=== PATIENT | male | born 1965 | race Caucasian/White ===

== ENCOUNTER 2017-11-07 20:13 | Emergency (ER) | payer BC ==
[2017-11-07] MEDS ORDERED: TETRACAINE HCL 0.5% 2ML OPTH ONE (20:38)
[2017-11-07] MEDS ORDERED: FLUORESCEIN SODIUM 0.6 MG/WRAP ONE (20:38)
--- NOTE | 2017-11-07 21:10 | EDPHYS ---
Physician Documentation [facility] Name: Petey Goldberg Age: 51 yrs Sex: Male : 1965 Arrival Date: 11/07/2017 Time: 20:14 Bed Treatment Private MD: Cuco Espinal B ED Physician Daryl Godinez HPI: 11/07 22:00 This 51 yrs old Male presents to ER via Ambulatory with complaints of Right pm1 Eye Pain and swelling. 22:00 Associated signs and symptoms: Pertinent negatives: visual changes. Patient wears soft pm1 contacts. Severity of symptoms: in the emergency department the symptoms have improved. Patient wears soft contact lenses. Patient with right eye lid swelling that has improved. Patient was power washing yesterday but had no form of injury or exposure to water to his eye yesterday. Patient woke up this Am with swelling to his right eyelids that have improved with warm compresses. Patient does not have the feeling of foreign body present to eyes. Historical: - Allergies: 20:43 No Known Allergies; aj1 - Home Meds: 20:43 None [Active]; aj1 - PMHx: 20:43 None; aj1 - PSHx: 20:43 None; aj1 - Immunization history:: Adult Immunizations up to date. - Social history:: Smoking status: Patient/guardian denies using tobacco. ROS: 22:00 Constitutional: Negative for fever, chills, and weight loss. pm1 22:00 ENT: Negative for injury, pain, and discharge, Neck: Negative for injury, pain, and swelling, Cardiovascular: Negative for chest pain, palpitations, and edema, Respiratory: Negative for shortness of breath, cough, wheezing, and pleuritic chest pain, Abdomen/GI: Negative for abdominal pain, nausea, vomiting, diarrhea, and constipation, Back: Negative for injury and pain, MS/Extremity: Negative for injury and deformity, Skin: Negative for injury, rash, and discoloration, Neuro: Negative for headache, weakness, numbness, tingling, and seizure. 22:00 Eyes: Positive for pain, swelling, of the right eye. Exam: 22:00 Visual Acuity: I have reviewed the nursing documentation. pm1 22:00 Constitutional: This is a well developed, well nourished patient who is awake, alert, and in no acute distress. Head/Face: Normocephalic, atraumatic. 22:00 ENT: Nares patent. No nasal discharge, no septal abnormalities noted. Tympanic membranes are normal and external auditory canals are clear. Oropharynx with no redness, swelling, or masses, exudates, or evidence of obstruction, uvula midline. Mucous membranes moist. Neck: Trachea midline, no thyromegaly or masses palpated, and no cervical lymphadenopathy. Supple, full range of motion without nuchal rigidity, or vertebral point tenderness. No Meningismus. Chest/axilla: Normal chest wall appearance and motion. Nontender with no deformity. No lesions are appreciated. Cardiovascular: Regular rate and rhythm with a normal S1 and S2. No gallops, murmurs, or rubs. Normal PMI, no JVD. No pulse deficits. Respiratory: Lungs have equal breath sounds bilaterally, clear to auscultation and percussion. No rales, rhonchi or wheezes noted. No increased work of breathing, no retractions or nasal flaring. Back: No spinal tenderness. No costovertebral tenderness. Full range of motion. Skin: Warm, dry with normal turgor. Normal color with no rashes, no lesions, and no evidence of cellulitis. MS/ Extremity: Pulses equal, no cyanosis. Neurovascular intact. Full, normal range of motion. 22:00 Eyes: Periorbital structures: appear normal, Pupils: no acute changes, equal, round, and reactive to light and accomodation, Extraocular movements: intact throughout, Conjunctiva: normal, Corneas: abrasion, is not appreciated, foreign body, is not appreciated, a fluorescein strip employed to appreciate the findings, Sclera: no appreciated abnormality, no acute changes, Lids and lashes: abrasion(s), are not appreciated, drainage, is not appreciated, edema, of the right eye. Vital Signs: 20:43 BP 152 / 90; Pulse 74; Resp 18; Pulse Ox 95% on R/A; Pain 7/10; aj1 Visual Acuity: 20:44 Left Eye Visual acuity 20/40, ; Without Lenses; aj1 20:45 Left Eye Visual acuity 20/20, ; With Lenses; aj1 MDM: 20:49 Patient medically screened. pm1 21:06 Data reviewed: vital signs. Data interpreted: Pulse oximetry: on room air is 95 %. pm1 Interpretation: normal. Counseling: I had a detailed discussion with the patient and/or guardian regarding: the historical points, exam findings, and any diagnostic results supporting the discharge/admit diagnosis, the need for outpatient follow up, to return to the emergency department if symptoms worsen or persist or if there are any questions or concerns that arise at home. 11/07 20:50 Order name: Visual Acuity; Complete Time: 20:58 pm1 11/07 20:50 Order name: Eye Tray; Complete Time: 20:58 pm1 11/07 20:50 Order name: Fluoresene Opth strip; Complete Time: 20:58 pm1 Administered Medications: 21:00 Drug: Tetracaine Drops 0.5 % 1 drops {Note: administered by Jillian Sequeira NP.} Route: aj1 Ophthalmic; Site: right eye; 21:16 CANCELLED (unavailable in pixis): Tobramycin Drops (0.3 %) 2 drops Ophthalmic once pm1 21:35 Drug: Gentamicin Drops 0.3 % 2 drops Route: Ophthalmic; Site: right eye; aj1 21:45 Drug: Tetanus-Diphtheria Toxoid Adult 0.5 ml {Residential Nurse: Imindi. Exp: aj1 03/16/2019. Lot #: [id number]. } Route: IM; Site: right deltoid; 22:03 Follow up: Response: No adverse reaction aj Disposition: 11/08 01:10 Co-signature as Attending Physician, Daryl Godinez MD I agree with the assessment and 4 plan of care. Disposition: 11/07/17 21:09 Discharged to Home. Impression: Blepharitis. - Condition is Stable. - Discharge Instructions: Blepharitis. - Prescriptions for Gentamicin 0.3 % Ophthalmic Drops - instill 1 drop by OPHTHALMIC route every 4 hours for 7 days; 1 bottle. - Medication Reconciliation Form, Thank You Letter, Antibiotic Education form. - Follow up: Emergency Department; When: As needed; Reason: Worsening of condition. Follow up: Private Physician; When: 2 - 3 days; Reason: Recheck today's complaints, Continuance of care, Re-evaluation by your physician. - Problem is new. - Symptoms have improved. Signatures: Ileana Parmar RN RN aj1 Nehemias Sequeira NP [employer] pm1 Daryl Godinez MD MD tw4 Corrections: (The following items were deleted from the chart) 11/07 21:16 21:10 Tobramycin Drops (0.3 %) 2 drops Ophthalmic once ordered. pm1 pm1 22:05 21:09 11/07/2017 21:09 Discharged to Home. Impression: Blepharitis. Condition is aj1 Stable. Forms are Medication Reconciliation Form, Thank You Letter, Antibiotic Education, Prescription Opioid Use. Follow up: Emergency Department; When: As needed; Reason: Worsening of condition. Follow up: Private Physician; When: 2 - 3 days; Reason: Recheck today's complaints, Continuance of care, Re-evaluation by your physician. Problem is new. Symptoms have improved. pm1
--- NOTE | 2017-11-07 21:10 | ER ---
Nurse's Notes [facility] Name: Petey Goldberg Age: 51 yrs Sex: Male : 1965 Arrival Date: 11/07/2017 Time: 20:14 Bed Treatment Private MD: Cuco Espinal B Diagnosis: Blepharitis Presentation: 11/07 20:41 Presenting complaint: Patient states: He was pressure washing yesterday and believes he aj1 got something in his eye. Reports eye pain, sensitivity to light and tearing of the right eye. Transition of care: patient was not received from another setting of care. Mechanism of Injury: No Mechanism of Injury. The patient denies any loss of vision. Onset of symptoms was November 07, 2017. Risk Assessment: Do you want to hurt yourself or someone else? Patient reports no desire to harm self or others. Initial Sepsis Screen: Does the patient meet any 2 criteria? No. Patient's initial sepsis screen is negative. Does the patient have a suspected source of infection? No. Patient's initial sepsis screen is negative. Care prior to arrival: None. 20:41 Method Of Arrival: Ambulatory aj1 20:41 Acuity: JONATAN 3 aj1 Triage Assessment: 20:43 General: Appears in no apparent distress. uncomfortable, Behavior is calm, cooperative, aj1 appropriate for age. Pain: Complains of pain in right eye Pain does not radiate. Pain currently is 7 out of 10 on a pain scale. EENT: Eyes are tearing on right lower eyelid. Historical: - Allergies: 20:43 No Known Allergies; aj1 - Home Meds: 20:43 None [Active]; aj1 - PMHx: 20:43 None; aj1 - PSHx: 20:43 None; aj1 - Immunization history:: Adult Immunizations up to date. - Social history:: Smoking status: Patient/guardian denies using tobacco. Screenin:46 Abuse screen: Denies threats or abuse. Denies injuries from another. Nutritional aj1 screening: No deficits noted. Tuberculosis screening: No symptoms or risk factors identified. 22:05 Fall Risk None identified. aj1 Assessment: 20:44 General: Appears in no apparent distress. uncomfortable, Behavior is calm, cooperative, aj1 appropriate for age. Pain: Complains of pain in right eye Pain does not radiate. Pain currently is 7 out of 10 on a pain scale. Neuro: Level of Consciousness is awake, alert, obeys commands, Oriented to person, place, time, situation, Speech is normal, Facial symmetry appears normal. Cardiovascular: Patient's skin is warm and dry. Respiratory: Airway is patent Respiratory effort is even, unlabored, Respiratory pattern is regular, symmetrical. GI: No signs and/or symptoms were reported involving the gastrointestinal system. : No signs and/or symptoms were reported regarding the genitourinary system. EENT: Eyes are tearing on right lower eyelid Sclera/Cornea are reddened in outer aspect of conjuctiva of right eye, iris of right eye and inner aspect of conjuctiva of right eye Reports photophobia Denies blurred vision. Derm: No signs and/or symptoms reported regarding the dermatologic system. Skin is pink, warm \T\ dry. normal. Musculoskeletal: No signs and/or symptoms reported regarding the musculoskeletal system. Circulation, motion, and sensation intact. 21:40 Reassessment: Patient discharged prior to receiving tetanus shot. Patient was called [facility] and asked to come back for tetanus shot. Patient agress. 21:45 Reassessment: Patient appears in no apparent distress at this time. No changes from [facility] previously documented assessment. Patient and/or family updated on plan of care and expected duration. Pain level reassessed. Patient is alert, oriented x 3, equal unlabored respirations, skin warm/dry/pink. Tetanus shot given. Vital Signs: 20:43 BP 152 / 90; Pulse 74; Resp 18; Pulse Ox 95% on R/A; Pain 7/10; aj1 Visual Acuity: 20:44 Left Eye Visual acuity 20/40, ; Without Lenses; aj1 20:45 Left Eye Visual acuity 20/20, ; With Lenses; aj1 ED Course: 20:14 Patient arrived in ED. am2 20:14 Cuco Espinal MD is Private Physician. am2 20:31 [facility] pm1 20:31 Daryl Godinez MD is Attending Physician. pm1 20:31 Ileana Parmar RN is Primary Nurse. aj1 20:42 Triage completed. aj1 20:43 Arm band placed on. aj1 20:46 Patient has correct armband on for positive identification. Call light in reach. aj1 20:46 No provider procedures requiring assistance completed. aj1 22:05 Patient did not have IV access during this emergency room visit. aj1 Administered Medications: 21:00 Drug: Tetracaine Drops 0.5 % 1 drops {Note: administered by Jillian Sequeira NP.} Route: aj1 Ophthalmic; Site: right eye; 21:16 CANCELLED (unavailable in pixis): Tobramycin Drops (0.3 %) 2 drops Ophthalmic once pm1 21:35 Drug: Gentamicin Drops 0.3 % 2 drops Route: Ophthalmic; Site: right eye; aj1 21:45 Drug: Tetanus-Diphtheria Toxoid Adult 0.5 ml {Weatherization Coordinator: [employer]. Exp: aj1 03/16/2019. Lot #: [id number]. } Route: IM; Site: right deltoid; 22:03 Follow up: Response: No adverse reaction aj1 Outcome: 21:09 Discharge ordered by MD. pm1 21:40 Discharged to home ambulatory. aj1 21:40 Condition: good 21:40 Discharge instructions given to patient, Instructed on discharge instructions, follow up and referral plans. medication usage, Demonstrated understanding of instructions, follow-up care, medications, Prescriptions given X 1. 22:05 Discharged to home aj1 22:05 Patient left the ED. aj1 Signatures: Ileana Parmar RN RN aj1 Nehemias Sequeira NP [employer] pm1 Yun Gentile am2 Corrections: (The following items were deleted from the chart) 20:46 20:45 Right Eye Without Lenses, 20/40, Left Eye Without Lenses, aj1 aj1 22:04 21:45 Reassessment: Patient appears in no apparent distress at this time. No changes aj1 from previously documented assessment. Patient and/or family updated on plan of care and expected duration. Pain level reassessed. Patient is alert, oriented x 3, equal unlabored respirations, skin warm/dry/pink. aj1
[2017-11-07] MEDS ORDERED: NEO/POLY/DEX OPTH 5 ML BOT ONE (21:15)
[2017-11-07] MEDS ORDERED: GENTAMICIN 0.3% OPTH DROP 5ML ONE (21:16)
[2017-11-07] MEDS ORDERED: TETANUS & DIPHTHERIA TOX,ADULT 0.5 ML VIAL ONE (21:42)
== END 2017-11-07 22:05 | disposition home or self-care (01) ==
LOC: ER 20:13
DX: H01.003 Unspecified blepharitis right eye, unspecified eyelid (principal); Z23 Encounter for immunization
CPT/HCPCS: 90714; 99283